=== PATIENT | male | born 1985 | race Caucasian/White ===

== ENCOUNTER 2018-05-31 14:14 | Emergency (ER) | payer OTHER ==
[~2018-05-31] VITALS: Ht 175.3 cm; Wt 108.2 kg
[~2018-05-31 14:14] MED LIST: HYDR-3165 PO
--- NOTE | 2018-05-31 15:34 | PHYS DOC ---
Past History Past Medical History: Anxiety Past Surgical History: Spleenectomy Alcohol Use: None Drug Use: None Adult General Chief Complaint Chief Complaint: MECHANICAL FALL HPI HPI Patient is a 32-year-old male who presents with head and neck pain after a fall this morning at 6 AM on a patch of ice. He reports that he was walking to work when he fell on concrete. He denies loss of consciousness. He reports that since the fall he has been very sleepy, but denies any numbness or tingling or loss of motor function. He has experienced pain of his right elbow as well, this is the side he fell on. The patient normally takes Adderall and methadone on a daily basis, but has not taken either today because of how he feels. Movement, palpation, and light make the symptoms worse. He reports minimal nausea and vomiting since this morning. Review of Systems Review of Systems Constitutional: Denies fever or chills [] Eyes: Denies change in visual acuity, redness, or eye pain [] HENT: Admits to head and neck pain, pain with full range of motion[] Respiratory: Denies cough or shortness of breath [] Cardiovascular: Denies chest pain and palpitations GI: Denies abdominal pain, nausea, vomiting, or diarrhea [] : Denies dysuria or hematuria [] Musculoskeletal: Admits to neck pain, elbow pain Integument: Denies rash or skin lesions [] Neurologic: Admits to headache, denies focal weakness or sensory changes [] Complete systems were reviewed and found to be within normal limits, except as documented in this note. Current Medications Current Medications Current Medications Medications (Trade) Dose Ordered Sig/[facility] Start Time Stop Time Status Last Admin Dose Admin Ketorolac Tromethamine (Toradol 30mg Vial) 30 mg 1X ONCE 05/31/18 15:45 05/31/18 15:46 Allergies Allergies Allergies Coded Allergies Type Severity Reaction Last Updated Verified No Known Drug Allergies 06/20/16 No Physical Exam Physical Exam Constitutional: Well developed, well nourished, no acute distress, non-toxic appearance HENT: Normocephalic, atraumatic, nose normal, tenderness to palpation of the posterior head and posterior neck, negative for midline tenderness, decreased ROM of the neck[] Eyes: PERRL, EOMI, conjunctiva normal, no discharge. [] Neck: Decreased ROM, paraspinal tenderness, no midline tenderness [] Cardiovascular: Heart rate regular rhythm, no murmur [] Lungs & Thorax: Bilateral breath sounds clear to auscultation [] Abdomen: Soft, no tenderness. Skin: Warm, dry, no erythema, no rash. [] Extremities: No tenderness, no edema. [] Neurologic: Alert and oriented X 3, normal motor function, normal sensory function, no focal deficits noted, Psychologic: Affect normal, judgement normal, mood normal. [] Current Patient Data Vital Signs Vital Signs Date Time Temp Pulse Resp B/P (MAP) Pulse Ox O2 Delivery O2 Flow Rate FiO2 05/31/18 14:36 98.0 80 18 97 Room Air EKG EKG [] Radiology/Procedures Radiology/Procedures PROCEDURE: CT HEAD AND CERVICAL SPINE [facility] Compliance Statement: One or more of the following individualized dose reduction techniques were utilized for this examination: 1. Automated exposure control 2. Adjustment of the mA and/or kV according to patient size 3. Use of iterative reconstruction technique CT HEAD AND CERVICAL SPINE WITHOUT CONTRAST History: Fall today, head contusion, headache, neck pain, stiffness Comparison: None. Procedure: Axial images are obtained of the head from the skull base through the vertex without IV contrast. Noncontrast helical CT of the cervical spine was performed. Axial, sagittal, and coronal reconstructions were obtained. Findings: The ventricles and sulci are normal for the patient's age. No mass-effect, midline shift, hemorrhage or obvious acute infarction is identified. Basilar cisterns are patent. Bone windows demonstrate no significant calvarial abnormality. The visualized paranasal sinuses are clear. Mastoid air cells are well aerated. There is no evidence of acute fracture or acute malalignment of the cervical spine. There are no perched or jumped facets. The vertebral body height and alignment are maintained. There is degenerative endplate spurring in the cervical spine. There are spondylitic discs of C4/C5 and C5/C6. The craniovertebral junction is maintained. Visualized soft tissues of the neck demonstrate no significant abnormalities. The visualized lung apices are clear. IMPRESSION: 1. No acute intracranial abnormality. 2. No acute fracture of the cervical spine. Electronically signed by: Naveed Minaya MD (05/31/2018 3:49 PM) [facility] Course & Med Decision Making Course & Med Decision Making Pertinent Labs and Imaging studies reviewed. (See chart for details) Patient is a 32-year-old male that presented with head and neck pain. History of present illness and physical exam was concerning for acute head or neck pathology. The CT scan of the head and neck showed no acute intracranial abnormality or cervical fracture. Pain management was addressed and a muscle relaxant was prescribed. Patient stable for discharge with outpatient follow-up with PCP. Discussed findings and plan with patient and family, who acknowledge understanding and agreement. Dragon Disclaimer Dragon Disclaimer This electronic medical record was generated, in whole or in part, using a voice recognition dictation system. Departure Departure: Impression: Primary Impression: Head contusion Additional Impression: Cervical strain Disposition: HOME, SELF-CARE Condition: STABLE Referrals: DARIO HOYOS PA-C (PCP) Patient Instructions: Cervical Strain and Sprain with Rehab-SportsMed, Head Injury, Adult, Lkgv-lc-Epck Scripts Orphenadrine Citrate (ORPHENADRINE CITRATE) 100 Mg Tablet.er 1 TAB PO BID PRN for MUSCLE PAIN, #14 TAB 0 Refills Prov: MANE DAUGHERTY DO 05/31/18 Naproxen (NAPROXEN) 500 Mg Tablet.dr 1 TAB PO Q12HR PRN for PAIN, #20 TAB 0 Refills Prov: MANE DAUGHERTY DO 05/31/18 Problem Qualifiers Primary Impression: Head contusion Encounter type: initial encounter Contusion of head detail: unspecified part of head Qualified Codes: S00.93XA - Contusion of unspecified part of head , initial encounter Additional Impression: Cervical strain Encounter type: initial encounter Qualified Codes: S16.1XXA - Strain of muscle, fascia and tendon at neck level, initial encounter MANE DAUGHERTY DO May 31, 2018 15:34
--- NOTE | 2018-05-31 15:53 | RAD ---
[employer] Compliance Statement: One or more of the following individualized dose reduction techniques were utilized for this examination: 1. Automated exposure control 2. Adjustment of the mA and/or kV according to patient size 3. Use of iterative reconstruction technique CT HEAD AND CERVICAL SPINE WITHOUT CONTRAST History: Fall today, head contusion, headache, neck pain, stiffness Comparison: None. Procedure: Axial images are obtained of the head from the skull base through the vertex without IV contrast. Noncontrast helical CT of the cervical spine was performed. Axial, sagittal, and coronal reconstructions were obtained. Findings: The ventricles and sulci are normal for the patient's age. No mass-effect, midline shift, hemorrhage or obvious acute infarction is identified. Basilar cisterns are patent. Bone windows demonstrate no significant calvarial abnormality. The visualized paranasal sinuses are clear. Mastoid air cells are well aerated. There is no evidence of acute fracture or acute malalignment of the cervical spine. There are no perched or jumped facets. The vertebral body height and alignment are maintained. There is degenerative endplate spurring in the cervical spine. There are spondylitic discs of C4/C5 and C5/C6. The craniovertebral junction is maintained. Visualized soft tissues of the neck demonstrate no significant abnormalities. The visualized lung apices are clear. IMPRESSION: 1. No acute intracranial abnormality. 2. No acute fracture of the cervical spine. Electronically signed by: Naveed Minaya MD (05/31/2018 3:49 PM) [facility]
[2018-05-31] MEDS ORDERED: ORPH-16 PO (16:05)
[2018-05-31] MEDS ORDERED: NAPR500T8 PO (16:05)
[2018-05-31] MEDS: KETOROLAC 30 MG/ML VIAL. IM ONE (16:23)
[2018-05-31 16:36] VITALS: BP 138/81
== END 2018-05-31 16:00 | disposition home or self-care (01) ==
LOC: ER 14:14
DX: S16.1XXA Strain of muscle, fascia and tendon at neck level, initial encounter (principal); S00.93XA Contusion of unspecified part of head, initial encounter; M25.521 Pain in right elbow; F41.9 Anxiety disorder, unspecified; W18.30XA Fall on same level, unspecified, initial encounter; Y93.01 Activity, walking, marching and hiking; Y92.89 Other specified places as the place of occurrence of the external cause; Y99.8 Other external cause status
CPT/HCPCS: 70450; 72125; 96372; 99284; J1885

== ENCOUNTER 2018-10-19 16:38 | Emergency (ER) | payer OTHER ==
[~2018-10-19] VITALS: Ht 175.3 cm; Wt 117.9 kg
[~2018-10-19 16:38] MED LIST changes: +NAPR500T8 PO; +ORPH-16 PO
[2018-10-19 16:45] VITALS: BP 134/87
--- NOTE | 2018-10-19 17:21 | PHYS DOC ---
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 Patient held this product for approximately 30 minutes while the search was completed. This product was a small amount in his bare hand. This happened approximately an hour prior to arrival. There has been no difficulty breathing. No somnolence.[] Review of Systems Review of Systems Constitutional: Denies fever or chills [] Eyes: Denies change in visual acuity, redness, or eye pain [] HENT: Denies nasal congestion or sore throat [] Respiratory: Denies cough or shortness of breath [] Cardiovascular: No chest pain or palpitations[] GI: Denies abdominal pain, nausea, vomiting, bloody stools or diarrhea [] : Denies dysuria or hematuria [] Musculoskeletal: Denies back pain or joint pain [] Integument: Denies rash or skin lesions [] Neurologic: Denies headache, focal weakness or sensory changes [] Endocrine: Denies polyuria or polydipsia [] All other systems were reviewed and found to be within normal limits, except as documented in this note. Allergies Allergies Allergies Coded Allergies Type Severity Reaction Last Updated Verified No Known Drug Allergies 06/20/16 No Physical Exam Physical Exam Constitutional: Well developed, well nourished, no acute distress, non-toxic appearance. [] HENT: Normocephalic, atraumatic, bilateral external ears normal, oropharynx moist, no oral exudates, nose normal. [] Eyes: PERRLA, EOMI, conjunctiva normal, no discharge. No pinpoint pupils [] Neck: Normal range of motion, no tenderness, supple, no stridor. [] Cardiovascular:Heart rate regular rhythm, no murmur [] Lungs & Thorax: Bilateral breath sounds clear to auscultation [] Abdomen: Bowel sounds normal, soft, no tenderness, no masses, no pulsatile masses. [] Skin: Warm, dry, no erythema, no rash. [] Back: No tenderness, no CVA tenderness. [] Extremities: No tenderness, no cyanosis, no clubbing, ROM intact, no edema. [] Neurologic: Alert and oriented X 3, normal motor function, normal sensory function, no focal deficits noted. [] Psychologic: Affect normal, judgement normal, mood normal. [] Current Patient Data Vital Signs Vital Signs Date Time Temp Pulse Resp B/P (MAP) Pulse Ox O2 Delivery O2 Flow Rate FiO2 10/19/18 16:45 98.5 84 20 94 Room Air EKG EKG [] Radiology/Procedures Radiology/Procedures [] Course & Med Decision Making Course & Med Decision Making Pertinent Labs and Imaging studies reviewed. (See chart for details) ED course: Patient arrived, was placed in bed, and tolerated exam well. Contact was made with poison control who confirmed that he to is not absorbed tr ansdermally. There are other products that could be observed transdermally such as fentanyl. Patient had his hands washed again in the emergency department to remove any potential remaining substance. He was observed and he was discharged in improved condition. Medical decision making: Patient does not appear to have any significant toxidrome. His drug screen was negative for drugs of abuse outside of the ones that is known he takes. Given that K2 is not absorbed transdermally, do not believe that his symptoms come from the product that was in his hand. There is no evidence of an opiate use given his negative opiate screen.[] Dragon Disclaimer Dragon Disclaimer This electronic medical record was generated, in whole or in part, using a voice recognition dictation system. Departure Departure: Impression: Primary Impression: Dizziness Disposition: 01 HOME, SELF-CARE Condition: IMPROVED Referrals: DARIO HOYOS PA-C (PCP) Follow-up with your regular doctor within 2 days Patient Instructions: Dizziness Additional Instructions: Follow-up with your regular doctor within 2 days. Drink plenty of fluids. Return to the ER if any concerns. [place] MANCILLA DO Oct 19, 2018 17:21
[2018-10-19 17:31] LABS: BASO # 0.1 x10^3/uL (0.0-0.2); BASO % 1 % (0-3); EOS # 0.2 x10^3/uL (0.0-0.7); EOS % 2 % (0-3); HEMATOCRIT 42.2 % (39.0-53.0); HEMOGLOBIN 14.3 g/dL (13.0-17.5); LYMPH # 2.1 x10^3/uL (1.0-4.8); LYMPH % 23 % (24-48); MEAN CORPUSCULAR HEMOGLOBIN 31 pg (25-35); MEAN CORPUSCULAR HGB CONC 34 g/dL (31-37); MEAN CORPUSCULAR VOLUME 92 fL (79-100); MONO # 0.9 x10^3/uL (0.0-1.1); MONO % 10 % (0-9); NEUT # 5.8 x10^3uL (1.8-7.7); NEUT % 64 % (31-73); PLATELET COUNT 505 x10^3/uL (140-400); RED BLOOD COUNT 4.59 x10^6/uL (4.30-5.70); RED CELL DISTRIBUTION WIDTH 13.7 % (11.5-14.5); WHITE BLOOD COUNT 9.1 x10^3/uL (4.0-11.0)
[2018-10-19 17:39] LABS: BARBITURATES NEG (NEG); BENZODIAZEPINES POS (NEG); CALCIUM 9.2 mg/dL (8.5-10.1); CANNABINOIDS NEG (NEG); COCAINE NEG (NEG); METHADONE POS (NEG); OPIATES NEG (NEG); PHENCYCLIDINE NEG (NEG); POTASSIUM 4.7 mmol/L (3.5-5.1)
[2018-10-19 17:40] LABS: AMPHETAMINE/METHAMPHETAMINE POS (NEG)
== END 2018-10-19 18:13 | disposition home or self-care (01) ==
LOC: ER 16:38
DX: R42 Dizziness and giddiness (principal); F41.9 Anxiety disorder, unspecified
CPT/HCPCS: 36415; 80048; 80307; 85025; 99284; G0480